=== PATIENT | male | born 1975 | race African-American/Black ===

== ENCOUNTER 2016-11-09 13:46 | Emergency (ER) | payer OTHER ==
[~2016-11-09] VITALS: Ht 182.9 cm; Wt 109.1 kg
[2016-11-09 13:56] VITALS: BP 149/84
[2016-11-09] MEDS ORDERED: EMTR1TAB8 PO (14:48)
[2016-11-09] MEDS ORDERED: TENO300T5 PO (14:48)
[2016-11-09] MEDS ORDERED: RALT400T PO (14:48)
[2016-11-09 15:19] LABS: BASO % 1 % (0-3); EOS % 3 % (0-3); HEMATOCRIT 38.9 % (39.0-53.0); HEMOGLOBIN 12.7 g/dL (13.0-17.5); LYMPH % 28 % (24-48); MEAN CORPUSCULAR HEMOGLOBIN 30 pg (25-35); MEAN CORPUSCULAR HGB CONC 33 g/dL (31-37); MEAN CORPUSCULAR VOLUME 92 fL (79-100); MONO % 8 % (0-9); NEUT % 60 % (31-73); PLATELET COUNT 178 x10^3/uL (140-400); RED BLOOD COUNT 4.21 x10^6/uL (4.30-5.70); WHITE BLOOD COUNT 5.9 x10^3/uL (4.0-11.0)
[2016-11-09 15:23] LABS: CALCIUM 8.6 mg/dL (8.5-10.1); CREATININE 0.9 mg/dL (0.7-1.3); GFR 113.7; POTASSIUM 3.7 mmol/L (3.5-5.1)
[2016-11-09] MEDS ORDERED: RALTEGRAVIR 400 MG TABLET. PO ONE (15:30)
[2016-11-09] MEDS ORDERED: EMTRICITAB/TENOFOVIR 200/300MG TABLET. PO ONE (15:30)
[2016-11-09 15:33] LABS: % LYMPHS 37 % (24-48); % MONOS 6 % (0-10); % SEGS 57 % (35-66)
[2016-11-09 15:34] LABS: PLATELET CLUMP PRESENT; PLT ESTIMATE ADEQUATE (ADEQUATE)
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
[2016-11-10 22:07] LABS: HCV ANTIBODY <0.1 s/co ratio (0.0-0.9)
== END 2016-11-09 15:36 | disposition home or self-care (01) ==
LOC: ER 13:46
DX: Z00.00 Encounter for general adult medical examination without abnormal findings (principal)
CPT/HCPCS: 36415; 80048; 85007; 85027; 86803; 87340; 99284

== ENCOUNTER 2016-11-10 15:56 | Emergency (ER) | payer OTHER ==
[~2016-11-10] VITALS: Ht 182.9 cm; Wt 109.1 kg
[~2016-11-10 15:56] MED LIST: EMTR1TAB8 PO; RALT400T PO; TENO300T5 PO
[2016-11-10 16:34] VITALS: BP 138/78
--- NOTE | 2016-11-10 16:36 | PHYS DOC ---
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 Patient was seen yesterday for body fluid exposure he started postexposure HIV prophylaxis. For whatever reason the lab needed another chemistry and HIV blood draw for the patient was brought back for blood draw only. He does say the medications are making him nauseous but overall has no complaints. States he would not come back had not been called. Timing/Duration: 24 hours Modifying Factors: worse with medication Associated Symptoms: nausea/vomiting Allergies: Coded Allergies: No Known Drug Allergies (Unverified , 10/16/14) Past Medical History Medical History: no pertinent history Surgical History: noncontributory Review of Systems Constitutional: no symptoms reported Respiratory: no symptoms reported Cardiovascular: no symptoms reported Gastrointestinal: see HPI Genitourinary: no symptoms reported Musculoskeletal: no symptoms reported Psychiatric/Neurological: no symptoms reported Physical Exam General Appearance: WD/WN, no apparent distress Respiratory: normal breath sounds, no respiratory distress Gastrointestinal: non tender, soft Back: no CVA tenderness, no vertebral tenderness Extremities: non-tender, normal inspection 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 Sufficient labs were drawn in the ED today. Prescription: Zofran ODT 4 mg take as directed.| VQ Follow-up with human resources regarding lab results and further evaluation and treatment. Return to ED with new or changing symptoms. RENE SANDHU DO Nov 10, 2016 16:36"
== END 2016-11-10 16:53 | disposition home or self-care (01) ==
LOC: ER 15:56
DX: Z77.21 Contact with and (suspected) exposure to potentially hazardous body fluids (principal); R11.0 Nausea
CPT/HCPCS: 99283

== ENCOUNTER 2018-12-30 22:23 | Emergency (ER) | payer BC, OTHER ==
[~2018-12-30] VITALS: Ht 182.9 cm; Wt 109.1 kg
[2018-12-30 22:41] LABS: BASO % 0 % (0-3); EOS % 1 % (0-3); HEMATOCRIT 43.7 % (39.0-53.0); HEMOGLOBIN 14.1 g/dL (13.0-17.5); LYMPH # 3.2 x10^3/uL (1.0-4.8); LYMPH % 61 % (24-48); MEAN CORPUSCULAR HEMOGLOBIN 31 pg (25-35); MEAN CORPUSCULAR HGB CONC 32 g/dL (31-37); MEAN CORPUSCULAR VOLUME 95 fL (79-100); MONO # 0.3 x10^3/uL (0.0-1.1); MONO % 5 % (0-9); NEUT # 1.7 x10^3uL (1.8-7.7); NEUT % 33 % (31-73); PLATELET COUNT 279 x10^3/uL (140-400); RED BLOOD COUNT 4.59 x10^6/uL (4.30-5.70); RED CELL DISTRIBUTION WIDTH 13.3 % (11.5-14.5); WHITE BLOOD COUNT 5.2 x10^3/uL (4.0-11.0)
[2018-12-30] MEDS: IV NORMAL SALINE 1,000ML 1,000 ML IV SCH (22:53)
[2018-12-30] MEDS: diphenhydrAMINE 50 MG/ML VIAL IV ONE (22:53)
[2018-12-30] MEDS: FAMOTIDINE 20 MG/2 ML VIAL IVP ONE (22:53)
[2018-12-30] MEDS: methylPREDNISolone SOD SUCC PF 125 MG/2 ML VIAL. IV ONE (22:54)
[2018-12-30 23:04] LABS: ALBUMIN/GLOBULIN RATIO 1.1 (1.0-1.7); CALCIUM 9.4 mg/dL (8.5-10.1); CREATININE 1.2 mg/dL (0.7-1.3); GFR 80.7; POTASSIUM 3.7 mmol/L (3.5-5.1); TOTAL BILIRUBIN 0.4 mg/dL (0.2-1.0); TOTAL PROTEIN 7.5 g/dL (6.4-8.2)
[2018-12-30] MEDS: METOCLOPRAMIDE HCL 10 MG/2 ML VIAL. IV ONE (23:26)
[2018-12-30 23:29] VITALS: BP 135/63
--- NOTE | 2018-12-31 00:31 | PHYS DOC ---
Past History Past Medical History: Hypertension, Other Past Surgical History: No Surgical History Alcohol Use: Occasionally Drug Use: None Adult General Chief Complaint Chief Complaint: ALLERGIC REACTION HPI HPI Patient is a 43-year-old male who presents after reportedly having an allergic reaction at home. Patient states that he is not certain what would've caused the reaction. He states that he took his normal medications this evening and states that within an hour of medications, he started to develop swelling to his face and complained of itching in his throat. He states that at that time he thought that he should come on to the emergency room and started to use a family member's EpiPen but it he checked it before he could give it to himself. He indicates the does have some shortness of breath but denies any wheezing. He denies any difficulty with swallowing. Patient denies any significant allergy history.[] Review of Systems Review of Systems Constitutional: Denies fever or chills [] Eyes: Denies change in visual acuity, redness, or eye pain [] Respiratory: Admits to shortness of breath [] Cardiovascular: No additional information not addressed in HPI [] GI: Denies abdominal pain. Patient does report nausea with episode of vomiting without diarrhea [] Integument: Denies rash or skin lesions [] Neurologic: Denies headache, focal weakness or sensory changes [] All other systems were reviewed and found to be within normal limits, except as documented in this note. Current Medications Current Medications Current Medications Medications (Trade) Dose Ordered Sig/Timothy Start Time Stop Time Status Last Admin Dose Admin Diphenhydramine HCl (Benadryl) 50 mg 1X ONCE 12/30/18 23:00 12/30/18 23:01 DC 12/30/18 22:53 50 MG Famotidine (Pepcid Vial) 20 mg 1X ONCE 12/30/18 23:00 12/30/18 23:01 DC 12/30/18 22:53 20 MG Methylprednisolone Sodium Succinate (SOLU-Medrol 125MG VIAL) 125 mg 1X ONCE 12/30/18 23:00 12/30/18 23:01 DC 12/30/18 22:54 125 MG Metoclopramide HCl (Reglan Vial) 10 mg 1X ONCE 12/30/18 23:15 12/30/18 23:16 DC 12/30/18 23:26 10 MG Sodium Chloride 1,000 ml @ 1,000 mls/hr Q1H 12/30/18 23:00 12/30/18 23:59 DC 12/30/18 22:53 1,000 MLS/HR Allergies Allergies Allergies Coded Allergies Type Severity Reaction Last Updated Verified No Known Drug Allergies 10/16/14 No Physical Exam Physical Exam Constitutional: Well developed, well nourished, no acute distress, non-toxic appearance. [] HENT: Normocephalic, atraumatic, there is mild swelling about patient's lips and upper eyelids, bilateral external ears normal, oropharynx moist, no oral exudates, nose normal. [] Eyes: PERRLA, EOMI, conjunctiva normal, no discharge. [] Neck: Normal range of motion, no tenderness, supple, no stridor. [] Cardiovascular:Heart rate regular rhythm, no murmur [] Lungs & Thorax: Bilateral breath sounds clear to auscultation [] Abdomen: Bowel sounds normal, soft, no tenderness, no masses, no pulsatile masses. [] Skin: Warm, dry, no erythema, no rash. [] Extremities: No tenderness, no cyanosis, no clubbing, ROM intact, no edema. [] Neurologic: Alert and oriented X 3, no focal deficits noted. [] Current Patient Data Vital Signs Vital Signs Date Time Temp Pulse Resp B/P (MAP) Pulse Ox O2 Delivery O2 Flow Rate FiO2 12/30/18 23:29 97.8 63 18 135/63 (87) 99 Room Air Lab Results Laboratory Tests Test 12/30/18 22:25 White Blood Count 5.2 x10^3/uL (4.0-11.0) Red Blood Count 4.59 x10^6/uL (4.30-5.70) Hemoglobin 14.1 g/dL (13.0-17.5) Hematocrit 43.7 % (39.0-53.0) Mean Corpuscular Volume 95 fL (79-100) Mean Corpuscular Hemoglobin 31 pg (25-35) Mean Corpuscular Hemoglobin Concent 32 g/dL (31-37) Red Cell Distribution Width 13.3 % (11.5-14.5) Platelet Count 279 x10^3/uL (140-400) Neutrophils (%) (Auto) 33 % (31-73) Lymphocytes (%) (Auto) 61 % (24-48) H Monocytes (%) (Auto) 5 % (0-9) Eosinophils (%) (Auto) 1 % (0-3) Basophils (%) (Auto) 0 % (0-3) Neutrophils # (Auto) 1.7 x10^3uL (1.8-7.7) L Lymphocytes # (Auto) 3.2 x10^3/uL (1.0-4.8) Monocytes # (Auto) 0.3 x10^3/uL (0.0-1.1) Eosinophils # (Auto) 0.0 x10^3/uL (0.0-0.7) Basophils # (Auto) 0.0 x10^3/uL (0.0-0.2) Sodium Level 141 mmol/L (136-145) Potassium Level 3.7 mmol/L (3.5-5.1) Chloride Level 107 mmol/L (98-107) Carbon Dioxide Level 24 mmol/L (21-32) Anion Gap 10 (6-14) Blood Urea Nitrogen 16 mg/dL (8-26) Creatinine 1.2 mg/dL (0.7-1.3) Estimated GFR (Cockcroft-Gault) 80.7 BUN/Creatinine Ratio 13 (6-20) Glucose Level 118 mg/dL (70-99) H Calcium Level 9.4 mg/dL (8.5-10.1) Total Bilirubin 0.4 mg/dL (0.2-1.0) Aspartate Amino Transferase (AST) 24 U/L (15-37) Alanine Aminotransferase (ALT) 36 U/L (16-63) Alkaline Phosphatase 68 U/L (46-116) Total Protein 7.5 g/dL (6.4-8.2) Albumin 4.0 g/dL (3.4-5.0) Albumin/Globulin Ratio 1.1 (1.0-1.7) EKG EKG [] Radiology/Procedures Radiology/Procedures [] Course & Med Decision Making Course & Med Decision Making Pertinent Labs and Imaging studies reviewed. (See chart for details) [] Dragon Disclaimer Dragon Disclaimer This electronic medical record was generated, in whole or in part, using a voice recognition dictation system. Departure Departure: Impression: Primary Impression: Allergic reaction Disposition: 01 HOME, SELF-CARE Condition: STABLE Referrals: CARYN FRENCH DO (PCP) Patient Instructions: Food Allergy and Anaphylaxis Problem Qualifiers Primary Impression: Allergic reaction Encounter type: initial encounter Qualified Codes: T78.40XA - Allergy, unspecified, initial encounter MIC MARTINEZ Jr., DO Dec 31, 2018 00:31
== END 2018-12-31 00:58 | disposition home or self-care (01) ==
LOC: ER 22:23
DX: T78.40XA Allergy, unspecified, initial encounter (principal); R11.2 Nausea with vomiting, unspecified; I10 Essential (primary) hypertension; X58.XXXA Exposure to other specified factors, initial encounter
CPT/HCPCS: 36415; 80053; 85025; 96361; 96374; 96375; 99285; J1200; J2765; J2930; J3490; J7030